=== PATIENT | male | born 1970 | race African-American/Black ===

== ENCOUNTER 2023-05-09 11:39 | Emergency (ER) | payer MEDICAID ==
[~2023-05-09] VITALS: Ht 182.9 cm; Wt 102.0 kg
[2023-05-09 11:44] VITALS: BP 129/71; PULSE 82; RESP 16; TEMP 98.6; O2SAT 98
[2023-05-09] MEDS ORDERED: DIF15 PO (12:20)
[2023-05-09] MEDS ORDERED: KETO15CR2 TP (12:20)
== END 2023-05-09 12:28 | disposition home or self-care (01) ==
LOC: ER 11:39
DX: B35.6 Tinea cruris (principal)
CPT/HCPCS: 99283